=== PATIENT | male | born 1955 | race Caucasian/White ===

== ENCOUNTER 2019-11-11 10:13 | Day surgery (SDC) | payer MEDICARE ==
[~2019-11-11] VITALS: Ht 188 cm; Wt 128.2 kg
[~2019-11-11 10:13] MED LIST: PROPOFOL 10 MG/ML, 20ML ONE
[2019-11-11 10:59] VITALS: BP 156/122
[2019-11-11] MEDS ORDERED: RIVA20TA PO (11:04)
[2019-11-11] MEDS ORDERED: METO50TA82 PO (11:04)
[2019-11-11 11:25] LABS: BASOPHILS # (AUTO) 0.07 x10^3/uL (0-0.1); BASOPHILS % (AUTO) 2 % (0-1); EOSINOPHILS # (AUTO) 0.03 x10^3/uL (0-0.4); EOSINOPHILS % (AUTO) 1 % (1-7); LYMPHOCYTES # (AUTO) 1.27 x10^3/uL (1-3.4); LYMPHOCYTES % (AUTO) 33 % (22-44); MD NO; MEAN CORPUSCULAR HEMOGLOBIN 31.6 pg (27.5-34.5); MEAN CORPUSCULAR HGB CONC 33.7 g/dL (33.2-36.2); MEAN CORPUSCULAR VOLUME 93.7 fL (81-97); MEAN PLATELET VOLUME 8.1 fL (7.4-10.4); MONOCYTES # (AUTO) 0.32 x10^3/uL (0.2-0.8); MONOCYTES % (AUTO) 8 % (2-9); NEUTROPHILS # (AUTO) 2.14 x10^3/uL (1.8-6.8); NEUTROPHILS % (AUTO) 56 % (42-75); PLATELET COUNT 153 x10^3/uL (130-400); RED BLOOD COUNT 5.81 x10^6/uL (4.38-5.82); RED CELL DISTRIBUTION WIDTH 12.7 % (9.4-14.8)
[2019-11-11 11:34] LABS: ANION GAP 5 mmol/L (5-15); CALCIUM 9.1 mg/dL (8.5-10.1); CHLORIDE 111 mmol/L (98-107); CREATININE 0.68 mg/dL (0.7-1.3)
== END 2019-11-11 13:50 | disposition home or self-care (01) ==
LOC: CACL 10:13
PROVIDERS: ATTEND Internal Medicine Cardiovascular Disease
DX: I48.91 Unspecified atrial fibrillation (principal); I48.92 Unspecified atrial flutter; I10 Essential (primary) hypertension; Z79.01 Long term (current) use of anticoagulants; Z79.899 Other long term (current) drug therapy
CPT/HCPCS: 36415; 80048; 85025; 92960; J2704

== ENCOUNTER 2020-11-24 06:13 | Day surgery (SDC) | payer MEDICARE ==
[~2020-11-24] VITALS: Ht 188 cm; Wt 127.3 kg
[~2020-11-24 06:13] MED LIST changes: +METO50TA82 PO; -PROPOFOL 10 MG/ML, 20ML ONE; +RIVA20TA PO
[2020-11-24] MEDS ORDERED: HYDROCHLOROTH12.5 MG PO (06:39)
[2020-11-24] MEDS ORDERED: LOSA25TA25 PO (06:39)
[2020-11-24 06:40] VITALS: BP 126/96
[2020-11-24 07:17] LABS: BASOPHILS % (AUTO) 1 % (0-1); EOSINOPHILS % (AUTO) 2 % (1-7); LYMPHOCYTES % (AUTO) 38 % (22-44); MEAN CORPUSCULAR HEMOGLOBIN 27.4 pg (27.5-34.5); MEAN CORPUSCULAR HGB CONC 33.1 g/dL (33.2-36.2); MEAN PLATELET VOLUME 7.5 fL (7.4-10.4); MONOCYTES % (AUTO) 13 % (2-9); NEUTROPHILS % (AUTO) 45 % (42-75); PLATELET COUNT 193 x10^3/uL (130-400); RED BLOOD COUNT 5.49 x10^6/uL (4.38-5.82); RED CELL DISTRIBUTION WIDTH 15.2 % (9.4-14.8)
[2020-11-24 07:22] LABS: ANION GAP 6 mmol/L (5-15); CALCIUM 8.4 mg/dL (8.5-10.1); CHLORIDE 108 mmol/L (98-107)
[2020-11-24 07:23] LABS: CREATININE 0.86 mg/dL (0.7-1.3)
[2020-11-24 07:31] LABS: INTERNATIONAL NORMALIZED RATIO 1.36 (0.93-1.1); PROTHROMBIN TIME 14.3 Seconds (9.6-11.5)
[2020-11-24] MEDS ORDERED: PROPOFOL 10 MG/ML, 20ML ONE (16:45)
== END 2020-11-24 08:57 | disposition home or self-care (01) ==
LOC: CACL 06:13
PROVIDERS: ATTEND Internal Medicine Clinical Cardiac Electrophysiology
DX: I48.3 Typical atrial flutter (principal); I10 Essential (primary) hypertension; E66.9 Obesity, unspecified; Z68.37 Body mass index [BMI] 37.0-37.9, adult; Z79.01 Long term (current) use of anticoagulants; Z79.899 Other long term (current) drug therapy
CPT/HCPCS: 36415; 80048; 85025; 85610; 92960; 93005; J2704

== ENCOUNTER 2020-12-13 11:20 | Day surgery (SDC) | payer MEDICARE ==
[~2020-12-13] VITALS: Ht 188 cm; Wt 129.0 kg
[~2020-12-13 11:20] MED LIST changes: +HYDROCHLOROTH12.5 MG PO; +LOSA25TA25 PO
[2020-12-13] MEDS ORDERED: SODIUM CHLORIDE 0.9% 1,000 ML IV SCH (12:00)
[2020-12-13 12:08] VITALS: BP 161/89
[2020-12-13 13:04] LABS: BASOPHILS % (AUTO) 1 % (0-1); EOSINOPHILS % (AUTO) 1 % (1-7); LYMPHOCYTES % (AUTO) 31 % (22-44); MEAN CORPUSCULAR HEMOGLOBIN 26.6 pg (27.5-34.5); MEAN CORPUSCULAR HGB CONC 33.2 g/dL (33.2-36.2); MEAN PLATELET VOLUME 7.7 fL (7.4-10.4); MONOCYTES % (AUTO) 13 % (2-9); NEUTROPHILS % (AUTO) 54 % (42-75); PLATELET COUNT 169 x10^3/uL (130-400); RED BLOOD COUNT 5.66 x10^6/uL (4.38-5.82); RED CELL DISTRIBUTION WIDTH 15.5 % (9.4-14.8)
[2020-12-13 13:12] LABS: ALANINE AMINOTRANSFERASE 33 U/L (12-78); ALBUMIN 3.9 g/dL (3.4-5.0); ANION GAP 7 mmol/L (5-15); CALCIUM 8.7 mg/dL (8.5-10.1); CHLORIDE 109 mmol/L (98-107); CREATININE 0.67 mg/dL (0.7-1.3)
[2020-12-13 13:14] LABS: INTERNATIONAL NORMALIZED RATIO 1.09 (0.93-1.1); PROTHROMBIN TIME 11.6 Seconds (9.6-11.5)
[2020-12-13 13:15] LABS: ALKALINE PHOSPHATASE 35 U/L (45-117); BILIRUBIN,TOTAL 0.9 mg/dL (0.2-1.0); TOTAL PROTEIN 7.1 g/dL (6.4-8.2)
[2020-12-13] MEDS ORDERED: MIDAZOLAM 1 MG/ML, 2ML ONE (14:26)
[2020-12-13] MEDS ORDERED: EPHEDRINE 50 MG/ML, 1ML ONE (14:26)
[2020-12-13] MEDS ORDERED: FENTANYL PF 250 MCG/5ML ONE (14:26)
[2020-12-13] MEDS ORDERED: DEXAMETHASONE 4 MG/ML, 1ML ONE ×2 (14:37)
[2020-12-13] MEDS ORDERED: LIDOCAINE 2%, 20ML ONE (14:41)
[2020-12-13] MEDS ORDERED: ONDANSETRON 2MG/ML, 2ML ONE ×2 (16:11)
[2020-12-13] MEDS ORDERED: PROPOFOL 10 MG/ML, 20ML ONE (16:11)
[2020-12-13] MEDS ORDERED: ROCURONIUM 10MG/ML,5ML ONE (16:11)
[2020-12-13] MEDS ORDERED: ACETAMINOPHEN 325 MG TABLET PO PRN (16:30)
[2020-12-13] MEDS ORDERED: ALBUTEROL SULFATE 2.5 MG/3 ML NPPB PRN (16:30)
[2020-12-13] MEDS ORDERED: hydrALAzine 20 MG/ML, 1ML IV PRN (16:30)
[2020-12-13] MEDS ORDERED: MEPERIDINE/PF 25MG/0.5ML IVPush PRN (16:30)
[2020-12-13] MEDS ORDERED: PROMETHAZINE 12.5 MG SUPP PR PRN (16:30)
[2020-12-13] MEDS ORDERED: LABETALOL 5MG/ML, 20ML IV PRN (16:30)
[2020-12-13] MEDS ORDERED: OXYcodone 5 MG/5 ML ORAL.SOL UDC PO PRN (16:30)
[2020-12-13] MEDS ORDERED: FENTANYL PF 100 MCG/2ML IV PRN (16:30)
[2020-12-13] MEDS ORDERED: DIAZEPAM 5 MG/ML, 2ML IVPush PRN (16:30)
[2020-12-13] MEDS ORDERED: PROMETHAZINE 25 MG/ML, 1ML IVPush PRN (16:30)
[2020-12-13] MEDS ORDERED: DIPHENHYDRAMINE 50 MG/ML, 1ML IVPush PRN ×2 (16:30)
[2020-12-13] MEDS ORDERED: MIDAZOLAM 1 MG/ML, 2ML IV PRN (16:30)
[2020-12-13] MEDS ORDERED: HYDROmorphone 1 MG/ML, 1ML INJ IVPush PRN (16:30)
[2020-12-13] MEDS ORDERED: ONDANSETRON 2MG/ML, 2ML IVPush PRN (16:30)
[2020-12-13] MEDS ORDERED: EPHEDRINE 50 MG/ML, 1ML IVPush PRN (16:30)
[2020-12-13 19:39] VITALS: BP 166/97
[2020-12-14] MEDS ORDERED: LOSARTAN 25MG TABLET PO SCH (09:00)
[2020-12-14] MEDS ORDERED: HYDROCHLOROTHIAZIDE 12.5 MG CAPSULE PO SCH (09:00)
[2020-12-14] MEDS ORDERED: RIVAROXABAN 20 MG TABLET PO SCH (09:00)
== END 2020-12-13 23:10 | disposition home or self-care (01) ==
LOC: CACL 11:20 → 5SO 16:36 → CACL 23:10
PROVIDERS: ATTEND Internal Medicine Clinical Cardiac Electrophysiology
DX: I48.92 Unspecified atrial flutter (principal); I47.1 Supraventricular tachycardia; I10 Essential (primary) hypertension; E66.9 Obesity, unspecified; Z20.822 Contact with and (suspected) exposure to COVID-19; Z68.37 Body mass index [BMI] 37.0-37.9, adult; Z79.01 Long term (current) use of anticoagulants; Z79.899 Other long term (current) drug therapy
CPT/HCPCS: 36415; 71046; 80053; 85025; 85610; 85730; 93005; 93613; 93653; 93655; C1730; C1732; C1766; C1894; J0360; J1100; J2250; J2405; J2704; J3010; U0003; U0005; G0378